=== PATIENT | male | born 1990 | race Caucasian/White ===

== ENCOUNTER 2018-11-14 14:25 | Inpatient (IN) | payer OTHER ==
[~2018-11-14] VITALS: Ht 180.3 cm; Wt 74.8 kg
[2018-11-14 14:45] LABS: BASOPHILS ABSOLUTE AUTO 0.03 K/mm3 (0.00-0.23); BASOPHILS PERCENT AUTO 0 % (0-2); EOSINOPHILS ABSOLUTE AUTO 0.01 K/mm3 (0.00-0.68); EOSINOPHILS PERCENT AUTO 0 % (0-6); Hematocrit 39.5 % (37.0-53.0); Hemoglobin 13.1 g/dL (13.5-17.5); IMMATURE GRAN ABSOLUTE AUTO 0.04 K/mm3 (0.00-0.10); IMMATURE GRAN PERCENT AUTO 0 % (0-1); LYMPHOCYTES PERCENT AUTO 8 % (21-46); MONOCYTES ABSOLUTE AUTO 0.83 K/mm3 (0.16-1.47); MONOCYTES PERCENT AUTO 7 % (4-13); Mean Corpuscular HGB 30.8 pg (26.0-34.0); Mean Corpuscular HGB Conc 33.2 g/dL (31.5-36.5); Mean Corpuscular Volume 93 fL (80-100); Mean Platelet Volume 9.1 fL (9.1-12.4); NEUTROPHILS ABSOLUTE AUTO 10.82 K/mm3 (1.96-9.15); NEUTROPHILS PERCENT AUTO 85 % (41-73); Platelet Count 218 K/mm3 (150-400); RDW Coefficient Variation 13.1 % (11.7-14.2); RDW Standard Deviation 44.3 fL (35.1-46.3); Red Blood Cell Count 4.26 M/mm3 (4.30-5.90); White Blood Cell Count 12.73 K/mm3 (4.00-11.30)
[2018-11-14 15:19] LABS: Anion Gap 5 mmol/L (6-16); Blood Urea Nitrogen 19 mg/dL (8-24); Bun/Creatinine Ratio 18.4 (12.0-20.0); CO2, Blood 27 mmol/L (21-32); Calcium, Blood 8.9 mg/dL (8.5-10.1); Chloride, Blood 107 mmol/L (98-108); Creatinine, Blood 1.03 mg/dL (0.60-1.20); Glomerular Filtration Rate >60 (60-); Glucose, Blood 84 mg/dL (70-99); Potassium, Blood 4.2 mmol/L (3.5-5.5); Sodium, Blood 139 mmol/L (136-145)
--- NOTE | 2018-11-14 19:29 | NUR ---
ARRIVAL TO THE FLOOR PT ARRIVES AT 1840, TRANSFERS SELF FROM [facility]OUR[place] TO BED WITH PROMPTING. FOLLOWS DIRECTIONS BUT VERY DROWSY. OPENS EYES ON COMMAND BUT UNABLE TO KEEP EYES OPEN. L EYE HAS SLIGHTLY BRUISING UNDER EYE. ABRASION TO BACK OF L HEAD. SCATTERED ABRASIONS AND BRUISING TO L FLANK AND SIDE. PUPILS 3MM BUT DO REACT AND CONSTRICT. FAMILY AT BEDSIDE, DR KLINE INTO SEE PT.
--- NOTE | 2018-11-15 05:28 | NUR ---
SUMMARY PT WAS ABLE TO WAKE UP FOR A SHORT PERIOD,HE WAS ABLE TO STATE HIS BIRTHDAY, WHERE HE WAS, AND RECOGNIZED FAMILY. PT IS UNAWARE OF DATE OR THE EVENTS LEADING TO HOSPITALIZATION. PT IS NOT REMEMBERING MY PREVIOUS NEURO CHECKS EACH TIME I TRY. HEAD WOUNDS HAVE NOT CHANGED, PT C/O SLIGHT HEADACHE. NARCOTICS WERE HELD, TORADOL WAS GIVEN FOR PAIN. VSS. RESP UNLABORED YET SHALLOW, DIMINISHED IN BASES. CHEST EQUAL BILATERAL,ON ROOM AIR. PT DENIES SOB OR PAIN ON INSPIRATION. LEFT FLANK SLIGHTLY SWOLLEN, PT DENIES PAIN WITH URINATION, URINE IS DARK JUDIE. IV FLUIDS INFUSING. PT IS TOLERATING PO INTAKE. BED ALARM IS ON FOR SAFETY, CALL LIGHT IN REACH. PT'S GIRLFRIEND IS AT THE BEDSIDE AND AND ASSISTS WITH CARE. ARIANA
[2018-11-15] MEDS ORDERED: Norco 5-325 Ta1 EACH PO (16:45)
--- NOTE | 2018-11-15 16:51 | NUR ---
DISCHARGE PT VOIDING, TOLERATING DIET, PAIN CONTROLLED, SCRIPT GIVEN.
== END 2018-11-15 16:55 | disposition home or self-care (01) | DRG 552 ==
LOC: ER 14:25 → SURS 15:28
PROVIDERS: Emergency Medicine; ADMIT Surgery
DX: S22.089A Unspecified fracture of T11-T12 vertebra, initial encounter for closed fracture (principal); S32.019A Unspecified fracture of first lumbar vertebra, initial encounter for closed fracture; S32.029A Unspecified fracture of second lumbar vertebra, initial encounter for closed fracture; S27.329A Contusion of lung, unspecified, initial encounter; S09.90XA Unspecified injury of head, initial encounter; W20.8XXA Other cause of strike by thrown, projected or falling object, initial encounter; J98.4 Other disorders of lung; Y92.69 Other specified industrial and construction area as the place of occurrence of the external cause
CPT/HCPCS: 70450; 71260; 74177; 80048; 85025; 96360-59; 97162; 97530; 99285-25; A9270-GY; J1885; J7030; J7120; Q9967